=== PATIENT | male | born 1955 | race Caucasian/White ===

== ENCOUNTER 2019-03-05 07:23 | Day surgery (SDC) | payer MEDICARE, OTHER ==
[2019-03-05] MEDS ORDERED: LIDOCAINE HCL 1% MPF 30 SOL ONE (08:02)
[2019-03-05] MEDS ORDERED: PROPOFOL 500 MG/50 ML EMU IV ONE ×2 (08:02)
[2019-03-05 08:58] VITALS: O2SAT 96
[2019-03-05 09:04] VITALS: BP 130/92; PULSE 98; RESP 18; TEMP 96.8
== END 2019-03-05 09:18 | disposition home or self-care (01) | DRG 951 ==
LOC: SURG 07:23
PROVIDERS: ATTEND Surgery
DX: Z12.11 Encounter for screening for malignant neoplasm of colon (principal); K62.1 Rectal polyp; R73.03 Prediabetes
CPT/HCPCS: 82962; J2001; J2704